=== PATIENT | female | born 1945 | race Caucasian/White ===

== ENCOUNTER 2018-12-29 13:44 | Emergency (ER) | payer MEDICARE, OTHER ==
--- NOTE | 2018-12-29 14:49 | ER Document Report ---
ED Medical Screen (RME) - General Chief Complaint: Leg Swelling Stated Complaint: LEG PAIN Time Seen by Provider: 12/29/18 14:34 Mode of Arrival: Ambulatory Information source: Patient Notes: 73-year-old female presented to ED for complaint of pain swelling and rash to bilateral lower extremities for 2 to 3 weeks. She states she went to her primary care doctor who sent her to a automobile body repairer helper. Dermatology started on triamcinolone cream for the rash and swelling. She does have peripheral vascular disease which is causing the swelling. She has a history of a stroke atrial fib with ablation cardiac stents x3 cataract surgery bronchitis pneumonia arthritis with degenerative joint disease and bilateral knee replacements back surgery due to injury to her back. Patient is alert and oriented respirations regular and unlabored speaking in full sentences. Both of her legs do have 2+ pitting edema up to the knees. She states it is very painful and itch. I have greeted and performed a rapid initial assessment of this patient. A comprehensive ED assessment and evaluation of the patient, analysis of test results and completion of medical decision making process will be conducted by an additional ED providers. TRAVEL OUTSIDE OF THE [place] IN LAST 30 DAYS: No - Related Data Allergies/Adverse Reactions: NSAIDS (Non-Steroidal Anti-Inflamma Allergy (Verified 12/29/18 13:45) prochlorperazine [From Compazine] Allergy (Verified 12/29/18 13:45) Physical Exam - Vital signs Vitals: Temp Pulse Resp BP Pulse Ox 97.7 F 64 15 180/61 H 95 12/29/18 14:11 12/29/18 14:11 12/29/18 14:11 12/29/18 14:11 12/29/18 14:11 Course - Vital Signs Vital signs: Temp Pulse Resp BP Pulse Ox 97.7 F 64 15 180/61 H 95 12/29/18 14:11 12/29/18 14:11 12/29/18 14:11 12/29/18 14:11 12/29/18 14:11
--- NOTE | 2018-12-29 15:17 | ER Document Report ---
ED General - General Chief Complaint: Leg Swelling Stated Complaint: LEG PAIN Time Seen by Provider: 12/29/18 14:34 Primary Care Provider: ALPHONSE CASON MD [Primary Care Provider] - Follow up in 3-5 days KEREN WALTON MD [[facility]] - Follow up in 1 week Mode of Arrival: Ambulatory TRAVEL OUTSIDE OF THE [place] IN LAST 30 DAYS: No - HPI Notes: 73-year-old female to the emergency department with complaints of progressively worsening bilateral lower leg swelling and skin changes for the past 2 weeks. She states that with the leg swelling and skin changes she has intense pain and itching. She states that she went and saw her primary care physician for this initially and he sent her over to see a elementary art teacher. She states that she has been told by the elementary art teacher that she has venous stasis dermatitis. He did start her on a cortisone cream. She states however that her pain is just gotten worse and the swelling is getting worse as well. She states that she does have a history of coronary artery disease and has had 3 stents placed. She states that in the past she has had some leg swelling in the left lower extremity but never in the right lower extremity. She states that she thinks that the right lower extremity is more swollen than her left extremity. She states that she does have a remote history of congestive heart failure but she cannot tell me when she last had an echo and she is not on any diuretics. She just recently moved to the area and she has not seen her new automotive specialty technician which will be Dr. Walton. She admits that in the past several weeks she is also been experiencing worsening shortness of breath. She finds that when she is moving around her home and she goes to sit down to rest that she feels like she is very labored. She states that last night when she ambulated to the bathroom and got back to her bedroom she felt like she was wheezing. She denies any fevers, cough, chills, chest pain, nausea, vomiting, diaphoresis. - Related Data Allergies/Adverse Reactions: NSAIDS (Non-Steroidal Anti-Inflamma Allergy (Verified 12/29/18 13:45) prochlorperazine [From Compazine] Allergy (Verified 12/29/18 13:45) Past Medical History - General Information source: Patient - Social History Smoking Status: Never Smoker Frequency of alcohol use: None Drug Abuse: None Lives with: Alone Family History: CAD, Hypertension Review of Systems - Review of Systems Constitutional: denies: Chills, Fever EENT: No symptoms reported Cardiovascular: Dyspnea, Edema. denies: Chest pain, Palpitations, Dizziness, Lightheaded Respiratory: Short of breath. denies: Cough Gastrointestinal: denies: Abdominal pain, Diarrhea, Nausea, Vomiting Genitourinary: See HPI Female Genitourinary: No symptoms reported Musculoskeletal: See HPI, Joint pain, Leg swelling Skin: See HPI, Change in color Hematologic/Lymphatic: No symptoms reported Neurological/Psychological: No symptoms reported -: Yes All other systems reviewed and negative Physical Exam - Vital signs Vitals: Temp Pulse Resp BP Pulse Ox 97.7 F 64 15 180/61 H 95 12/29/18 14:11 12/29/18 14:11 12/29/18 14:11 12/29/18 14:11 12/29/18 14:11 Interpretation: Hypertensive - General General appearance: Appears well, Alert In distress: None - HEENT Head: Normocephalic, Atraumatic Eyes: Normal Pupils: PERRL - Respiratory Respiratory status: No respiratory distress Chest status: Nontender Breath sounds: Normal Chest palpation: Normal - Cardiovascular Rhythm: Regular Heart sounds: Normal auscultation Murmur: No Notes: Bilateral 2+ pitting edema to the legs. - Back Back: Normal, Nontender - Extremities General lower extremity: Edema, Normal ROM, Normal strength. No: Normal temperature, Lola's sign - Neurological Neuro grossly intact: Yes Cognition: Normal Orientation: AAOx4 Charly Coma Scale Eye Opening: Spontaneous Charly Coma Scale Verbal: Oriented [place] Coma Scale Motor: Obeys Commands Chalry Coma Scale Total: 15 Speech: Normal Motor strength normal: LUE, RUE, LLE, RLE Sensory: Normal - Psychological Associated symptoms: Normal affect, Normal mood - Skin Skin Temperature: Warm Skin Moisture: Dry Skin Color: Kingston - Kingston skin from venous stasis dermatitis. No weeping of the leg s. See discussion of edema in cardiovascular Course - Re-evaluation Re-evalutation: 12/29/[address] Matute. We agree that we will trial patient on Lasix. We will have her follow with PCP. Noted labs as well as imaging. negative PVLs for DVT. Will discharge patient home. Discussed with patient and she agrees with the plan. Impression: Bilateral lower extremity edema, CHF, will discharge home with lasix 20 mg. Will have patient follow with Cardiology outpatient as well as PCP. Urged to return if worsening symptoms. - Vital Signs Vital signs: Temp Pulse Resp BP Pulse Ox 97.5 F 64 17 148/66 H 96 12/29/18 16:36 12/29/18 14:11 12/29/18 19:01 12/29/18 19:01 12/29/18 19:01 - Laboratory Result Diagrams: 12/29/18 16:14 12/29/18 16:14 Laboratory results interpreted by me: 12/29/18 12/29/18 12/29/18 16:14 16:14 16:37 RDW 14.4 H Lamb % (Auto) 15.1 H Glucose 152 H Alkaline Phosphatase 164 H Urine Glucose (UA) 150 H Urine Urobilinogen 2.0 H Discharge - Discharge Clinical Impression: Leg swelling Leg pain Qualifiers: Laterality: bilateral Qualified Code(s): M79.604 - Pain in right leg Congestive heart failure Qualifiers: Heart failure type: unspecified Heart failure chronicity: unspecified Qualified Code(s): I50.9 - Heart failure, unspecified Condition: Stable Disposition: HOME, SELF-CARE Instructions: Edema, Peripheral ([facility]) Additional Instructions: TAKE 20 mg LASIX PRESCRIBED DAILY. MONITOR YOUR WEIGHT DAILY. IF YOU NOTICE THAT YOUR WEIGHT INCREASES BY 2 OR MORE POUNDS, PLEASE TAKE 40 mg of [address]IX. CALL DR. WALTON TOMORROW TO SCHEDULE AN EARLIER APPOINTMENT NEXT WEEK. RETURN IMMEDIATELY IF YOUR SYMPTOMS WORSEN. Prescriptions: Furosemide [Lasix 20 mg Tablet] 20 mg PO QAM #10 tablet Referrals: ALPHONSE CASON MD [Primary Care Provider] - Follow up in 3-5 days KEREN WALTON MD [[facility]] - Follow up in 1 week
[2018-12-29 16:32] LABS: ABSOLUTE BASOPHILS # (AUTO) 0.1 10^3/uL (0.0-0.2); ABSOLUTE EOSINOPHILS # (AUTO) 0.2 10^3/uL (0.0-0.6); ABSOLUTE LYMPHOCYTES (AUTO) 2.2 10^3/uL (0.5-4.7); ABSOLUTE MONOCYTES (AUTO) 1.1 10^3/uL (0.1-1.4); ABSOLUTE NEUT (AUTO) 3.7 10^3/uL (1.7-8.2); BASOPHILS % (AUTO) 1.2 % (0-2); EOSINOPHILS % (AUTO) 2.9 % (0-6); HEMATOCRIT 37.6 % (36.0-47.0); HEMOGLOBIN 12.9 g/dL (12.0-15.5); LYMPHOCYTES % (AUTO) 29.9 % (13-45); MEAN CORPUSCULAR HEMOGLOBIN 30.9 pg (27.0-33.4); MEAN CORPUSCULAR HGB CONC 34.1 g/dL (32.0-36.0); MEAN CORPUSCULAR VOLUME 91 fl (80-97); MONOCYTES % (AUTO) 15.1 % (3-13); PLATELET COUNT 173 10^3/uL (150-450); RED BLOOD COUNT 4.16 10^6/uL (3.72-5.28); RED CELL DISTRIBUTION WIDTH 14.4 % (11.5-14.0); SEGMENTED NEUTROPHILS % (AUTO) 50.9 % (42-78); TOTAL CELLS COUNTED % (AUTO) 100 %; WHITE BLOOD COUNT 7.2 10^3/uL (4.0-10.5)
--- NOTE | 2018-12-29 16:34 | RADIOLOGY REPORT (SQ) ---
EXAM DESCRIPTION: CHEST SINGLE VIEW COMPLETED DATE/TIME: 12/29/2018 4:24 pm REASON FOR STUDY: SOB COMPARISON: None. NUMBER OF VIEWS: One view. TECHNIQUE: Single frontal radiographic view of the chest acquired. LIMITATIONS: None. FINDINGS: LUNGS AND PLEURA: Mild bilateral interstitial airspace disease. MEDIASTINUM AND HILAR STRUCTURES: No masses. Contour normal. HEART AND VASCULAR STRUCTURES: Heart is enlarged with central vascular prominence. BONES: No acute findings. HARDWARE: None in the chest. OTHER: No other significant finding. IMPRESSION: Cardiomegaly and mild vascular congestion. TECHNICAL DOCUMENTATION: JOB ID: [id number] [employer]- All Rights Reserved Reading location - IP/workstation name: [email or web address]
[2018-12-29 16:58] LABS: ALBUMIN 3.5 g/dL (3.5-5.0); ALKALINE PHOSPHATASE 164 U/L (38-126); ANION GAP 9 (5-19); ASPARTATE AMINO TRANSFERASE 34 U/L (14-36); BILIRUBIN,DIRECT 0.4 mg/dL (0.0-0.4); BILIRUBIN,TOTAL 1.2 mg/dL (0.2-1.3); BLOOD UREA NITROGEN 9 mg/dL (7-20); CALCIUM 9.6 mg/dL (8.4-10.2); CARBON DIOXIDE 28 mmol/L (22-30); CHLORIDE 102 mmol/L (98-107); GLUCOSE 152 mg/dL (75-110); POTASSIUM 4.1 mmol/L (3.6-5.0); TOTAL PROTEIN 6.3 g/dL (6.3-8.2)
[2018-12-29 17:06] LABS: APPEARANCE,URINE CLEAR; BILIRUBIN,URINE NEGATIVE (NEGATIVE); COLOR,URINE YELLOW; GLUCOSE, URINE 150 mg/dL (NEGATIVE); KETONES,URINE NEGATIVE (NEGATIVE); LEUKOCYTE ESTERASE,URINE NEGATIVE (NEGATIVE); NITRITE,URINE NEGATIVE (NEGATIVE); PROTEIN,URINE NEGATIVE (NEGATIVE); URINE SPECIFIC GRAVITY 1.011
[2018-12-29 17:19] LABS: NT PRO BNP 424 pg/mL (5-900)
[2018-12-29 17:20] LABS: TROPONIN I < 0.012 ng/mL
[2018-12-29] MEDS ORDERED: FUROSEMIDE INJ/PF 20 MG/2 ML SDV IV ONE (18:36)
[2018-12-29 19:22] VITALS: BP 148/66
--- NOTE | 2018-12-29 19:36 | RADIOLOGY REPORT (SQ) ---
EXAM DESCRIPTION: VENOUS UNILATERAL LOWER COMPLETED DATE/TIME: 12/29/2018 7:25 pm REASON FOR STUDY: bilateral lower leg edema COMPARISON: None. TECHNIQUE: Dynamic and static rodriguez scale and color images acquired of both lower extremity venous sy stems. Selected spectral images acquired with additional compression and augmentation maneuvers. Imag es stored on PACS. LIMITATIONS: None. FINDINGS: RIGHT LEG COMMON FEMORAL AND FEMORAL: Normal phasicity, compression and augmentation. No visualized echogenic m aterial on rodriguez scale. No defects on color images. POPLITEAL: Normal compression and augmentation. No visualized echogenic material on rodriguez scale. No de fects on color images. CALF VESSELS: Normal compression and augmentation. No visualized echogenic material on rodriguez scale. No defects on color image. Peroneal veins could not be seen. GSV AND SSV: Normal compression. No visualized echogenic material on rodriguez scale. No defects on color images. ANY DEEP VENOUS INSUFFICIENCY: Not evaluated. ANY EVIDENCE OF POPLITEAL CYST: No. OTHER: No other significant finding. LEFT LEG COMMON FEMORAL AND FEMORAL: Normal phasicity, compression and augmentation. No visualized echogenic m aterial on rodriguez scale. No defects on color images. POPLITEAL: Normal compression and augmentation. No visualized echogenic material on rodriguez scale. No de fects on color images. CALF VESSELS: Normal compression and augmentation. No visualized echogenic material on rodriguez scale. No defects on color images. Peroneal veins could not be seen. GSV AND SSV: Normal compression. No visualized echogenic material on rodriguez scale. No defects on color images. ANY DEEP VENOUS INSUFFICIENCY: Not evaluated. ANY EVIDENCE POPLITEAL CYST: No. OTHER: No other significant finding. IMPRESSION: NO EVIDENCE DVT OR SVT IN EITHER LEG. (PERONEAL VEINS CANNOT BE SEEN IN EITHER CALF. ) TECHNICAL DOCUMENTATION: JOB ID: [id number] [employer]- All Rights Reserved Reading location - IP/workstation name: [email or web address]
--- NOTE | 2018-12-30 14:14 | EKG REPORT ---
SEVERITY:- ABNORMAL ECG - SINUS RHYTHM PROBABLE ANTEROSEPTAL INFARCT, AGE INDETERM LATERAL LEADS ARE ALSO INVOLVED NONSPECIFIC T CHANGES : Confirmed by: He Moffett 30-Dec-2018 14:13:35
== END 2018-12-29 19:35 | disposition home or self-care (01) ==
LOC: ER 13:44
DX: I50.9 Heart failure, unspecified (principal); I87.2 Venous insufficiency (chronic) (peripheral); M79.604 Pain in right leg; M25.50 Pain in unspecified joint; R60.0 Localized edema; R06.02 Shortness of breath; Z88.8 Allergy status to other drugs, medicaments and biological substances; I25.10 Atherosclerotic heart disease of native coronary artery without angina pectoris
CPT/HCPCS: 93005; 36415; 85025; 80053; 81001; 84484; 83880; 93971; 71045; 93010; J1940; 96374; 99284

== ENCOUNTER 2019-01-18 06:25 | Day surgery (SDC) | payer MEDICARE, OTHER ==
[~2019-01-18 06:25] MED LIST: RADIAL COCKTAIL SYRINGE 10 ML IV PRN
[2019-01-18] MEDS ORDERED: HEPARIN SODIUM,PORCINE/NS/PF 2,000 UNIT/1,000 ML RTUINJ IV ONE (07:04)
[2019-01-18] MEDS ORDERED: LIDOCAINE 1% INJ-PF (10 MG/ML) 30 ML SDV ONE (07:04)
[2019-01-18] MEDS ORDERED: MIDAZOLAM 2 MG/2 ML INJ ONE (07:34)
[2019-01-18] MEDS ORDERED: HEPARIN SOD (PORCINE) 5,000 UNIT/ML 1 ML VIAL ONE (07:34)
[2019-01-18] MEDS ORDERED: FENTANYL CITRATE INJ/PF 100 MCG/2 ML AMPUL ONE ×2 (07:34→09:10)
[2019-01-18] MEDS ORDERED: NORMAL SALINE 1000 ML 1,000 ML IV PRN (07:39)
[2019-01-18] MEDS ORDERED: DIAZEPAM 5 MG TABLET PO PRN (07:39)
[2019-01-18] MEDS ORDERED: DIPHENHYDRAMINE HCL 25 MG CAPSULE PO PRN (07:40)
[2019-01-18] MEDS ORDERED: DIAZEPAM 5 MG TABLET ONE (07:41)
[2019-01-18] MEDS ORDERED: DIPHENHYDRAMINE HCL 25 MG CAPSULE ONE (07:42)
[2019-01-18] MEDS ORDERED: BIVALIRUDIN INJ 250 MG VIAL IV ONE (09:12)
[2019-01-18] MEDS ORDERED: TICAGRELOR 90 MG TABLET ONE (09:59)
--- NOTE | 2019-01-18 10:30 | Operative Report ---
Operative Report DATE OF SURGERY: 01/18/19 Operative Report: Left heart catheterization coronary angiography, left ventriculography, Cutting Balloon PTCA to the PDA of the RCA and stent implantation in the radius intermedius with a drug-eluting stent POSTOPERATIVE DIAGNOSIS: Hypertrophic cardiomyopathy spayed variant, multivessel coronary disease OPERATION: Left heart catheterization coronary angiography stent implantation and PTCA SURGEON: CHARLY BOSS ANESTHESIA: Moderate Sedation COMPLICATIONS: None PROCEDURE: After informed consent was obtained the patient was brought to the cardiac catheterization lab and the right wrist was prepared in usual sterile and draped manner. Hemodynamic access was gained using micropuncture technique and the patient was anticoagulated with heparin. An intra-arterial cocktail of verapamil and lidocaine was administered. Selective coronary angiography was performed with a [place] catheter. This was exchanged with pigtail catheter and left ventriculography was performed in standard [place] projection. The patient left the Cardiac Catheterization Lab in stable condition, with intact distal pulses and no chest pain or other complications from the procedure. Conscious sedation was initiated, monitored, and maintained during the procedure with the start time of 849 and a completion time of 10 AM for a total procedure time of 71 minutes. A total of 1.5 milligrams of Versed and 175 mcg of fentanyl were used for conscious sedation. HEMODYNAMIC DATA: [Aortic pressure was not recorded to beginning the case initial left ventricular pressure was 121/15 post ventriculography LV pressure is 112/20 aortic pressure on pullback is 116/46 there is no gradient across the aortic valve] CORONARY ANATOMY: [] ANGIOGRAPHY: [] VENTRICULOGRAPHY: Ventriculography is performed in the [place] projection and demonstrates [the left ventricle has a speed configuration consistent with hypertrophic cardiomyopathy there is an apical cavity and near apical obliteration regional wall motion is hyperdynamic and no regional wall motion abnormalities are noted ejection fraction by area length method is calculated at 92%] . CORONARY ANGIOGRAPHY: [] LEFT MAIN: [Left main is normal] LEFT ANTERIOR DESCENDING: The LAD is relatively small caliber vessel there is a 40 to 50% stenosis in the midportion which is eccentric there is a small diagonal which is also patent with luminal irregularities CIRCUMFLEX CORONARY: The circumflex gives rise to 2 posterolateral branches and a ramus intermedius branch the ramus intermedius branch has an 80% proximal near ostial stenosis the ongoing circumflex has irregularities only RIGHT CORONARY ARTERY: The right coronary artery is a dominant vessel supplying the PDA there is is a 20 to 30% stenosis in the mid RCA near the right ventricular marginal branches stent implantations are noted in the distal right coronary artery which extends into the PDA in the proximal midportion and the extent of the stents makes surgical revascularization of the PDA difficult bypass would need to be done very distal there is an in-stent area of restenosis approaching 9095% Percutaneous revascularization to the right coronary artery was then performed patient received Angiomax a JR4 catheter was advanced into the ostium and intuition guidewire was advanced across the distal stenosis attempts at PTCA wi th a 2.5 mm angioscope cutting balloon was unsuccessful the balloon would not cross a 2.0 mm Medtronic balloon was then used to dilate the stenosis this crossed with significant difficulty after dilatation the 2-5 cutting balloon was used and postdilated to 2.8 resulting in an excellent angiographic result TIO-3 flow and no evidence of dissection or side branch loss Attention was then turned towards the ramus intermedius and the be an XB 3 5 was then advanced into the left main the lesion was crossed attempts at crossing with a 208 mm drug-eluting stent was unsuccessful this was then dilated with a 2.0 balloon in the 2.08 mm Medtronic josy drug-eluting stent was postdilated to 2.25 resulting in an excellent angiographic result IMPRESSION: 1. Hypertrophic cardiomyopathy with a spade ventricle 2. Successful drug-eluting stent implantation in the ramus intermedius 3. Cutting Balloon PTCA to the right PDA 4. Moderate disease in the LAD which is small caliber Recommendations: Dual antiplatelet therapy for a year Medical therapy for the hypertrophic cardiomyopathy Myocardial perfusion study in order to determine the significance of the stenosis in the LAD See Dr. Darrion Walton thank you
[2019-01-18 14:44] VITALS: BP 140/64
== END 2019-01-18 13:45 | disposition home or self-care (01) ==
LOC: CCL 06:25
PROVIDERS: ATTEND Internal Medicine Cardiovascular Disease
DX: I25.10 Atherosclerotic heart disease of native coronary artery without angina pectoris (principal); Z79.84 Long term (current) use of oral hypoglycemic drugs; Z79.899 Other long term (current) drug therapy; R94.31 Abnormal electrocardiogram [ECG] [EKG]; E78.5 Hyperlipidemia, unspecified; I11.9 Hypertensive heart disease without heart failure
CPT/HCPCS: 82962; 93458; 92928; 92920; C1877; C1887; C1725; C1874; J2250; J1644 ×2; A9270 ×3; J3010; J3490 ×4; J0583

== ENCOUNTER 2019-03-03 08:23 | Emergency (ER) | payer MEDICARE, OTHER ==
[2019-03-03] MEDS ORDERED: NITROGLYCERIN 0.4 MG/TAB 25 TAB/BOTTLE SL PRN (10:01)
[2019-03-03] MEDS ORDERED: ASPIRIN 325 MG TABLET PO ONE (10:01)
[2019-03-03 10:22] LABS: ABSOLUTE LYMPHOCYTES (AUTO) 1.4 10^3/uL (0.5-4.7); ABSOLUTE MONOCYTES (AUTO) 0.8 10^3/uL (0.1-1.4); ABSOLUTE NEUT (AUTO) 11.7 10^3/uL (1.7-8.2); HEMATOCRIT 39.9 % (36.0-47.0); HEMOGLOBIN 13.7 g/dL (12.0-15.5); LYMPHOCYTES % (AUTO) 9.8 % (13-45); MEAN CORPUSCULAR HEMOGLOBIN 31.3 pg (27.0-33.4); MEAN CORPUSCULAR HGB CONC 34.4 g/dL (32.0-36.0); MEAN CORPUSCULAR VOLUME 91 fl (80-97); PLATELET COUNT 204 10^3/uL (150-450); RED BLOOD COUNT 4.39 10^6/uL (3.72-5.28); RED CELL DISTRIBUTION WIDTH 14.2 % (11.5-14.0); SEGMENTED NEUTROPHILS % (AUTO) 84.2 % (42-78); TOTAL CELLS COUNTED % (AUTO) 100 %; WHITE BLOOD COUNT 13.9 10^3/uL (4.0-10.5)
--- NOTE | 2019-03-03 11:00 | RADIOLOGY REPORT (SQ) ---
EXAM DESCRIPTION: CHEST SINGLE VIEW COMPLETED DATE/TIME: 03/03/2019 10:33 am REASON FOR STUDY: chest pain COMPARISON: 12/29/2018 NUMBER OF VIEWS: One view. TECHNIQUE: Single frontal radiographic view of the chest acquired. LIMITATIONS: None. FINDINGS: LUNGS AND PLEURA: No opacities, masses or pneumothorax. No pleural effusion. MEDIASTINUM AND HILAR STRUCTURES: No masses. Contour normal. HEART AND VASCULAR STRUCTURES: Heart enlarged without failure. Normal vasculature. BONES: No acute findings. HARDWARE: None in the chest. OTHER: No other significant finding. IMPRESSION: HEART ENLARGED WITHOUT FAILURE. NO OTHER SIGNIFICANT RADIOGRAPHIC FINDING IN THE CHEST. TECHNICAL DOCUMENTATION: JOB ID: [id number] [employer]- All Rights Reserved Reading location - IP/workstation name: [email or web address]
[2019-03-03 11:58] LABS: ALBUMIN 3.8 g/dL (3.5-5.0); ALKALINE PHOSPHATASE 190 U/L (38-126); ANION GAP 13 (5-19); ASPARTATE AMINO TRANSFERASE 45 U/L (14-36); BILIRUBIN,DIRECT 0.3 mg/dL (0.0-0.4); BILIRUBIN,TOTAL 1.2 mg/dL (0.2-1.3); BLOOD UREA NITROGEN 16 mg/dL (7-20); CALCIUM 9.6 mg/dL (8.4-10.2); CARBON DIOXIDE 20 mmol/L (22-30); CHLORIDE 104 mmol/L (98-107); GLUCOSE 267 mg/dL (75-110); POTASSIUM 4.4 mmol/L (3.6-5.0)
[2019-03-03 12:10] LABS: APPEARANCE,URINE CLEAR; BILIRUBIN,URINE NEGATIVE (NEGATIVE); COLOR,URINE YELLOW; GLUCOSE, URINE >=500 mg/dL (NEGATIVE); KETONES,URINE NEGATIVE (NEGATIVE); LEUKOCYTE ESTERASE,URINE NEGATIVE (NEGATIVE); NITRITE,URINE NEGATIVE (NEGATIVE); PROTEIN,URINE NEGATIVE (NEGATIVE); URINE SPECIFIC GRAVITY 1.026; UROBILINOGEN,URINE NEGATIVE mg/dL (<2.0)
--- NOTE | 2019-03-03 12:48 | ER Document Report ---
ED General - General Chief Complaint: Chest Pain Stated Complaint: CHEST PAIN Time Seen by Provider: 03/03/19 09:29 Primary Care Provider: ALPHONSE CASON MD [Primary Care Provider] - Follow up as needed TRAVEL OUTSIDE OF THE [place] IN LAST 30 DAYS: No - HPI Notes: Is a 74-year-old pleasant lady who presents today with a complaint of substernal chest pain that started this morning around 3 AM. Patient describes chest tightness, radiating down her left arm. Associated symptoms included dyspnea. Patient states that she took a nitroglycerin and she is now pain-free. She has history of coronary artery disease and is status post stent placement on January 18. She is now pain-free. She denies any cough or congestion. She denies any recent illness. Describes her symptoms as moderate. She states her symptoms feel like her heart pain. - Related Data Allergies/Adverse Reactions: NSAIDS (Non-Steroidal Anti-Inflamma Allergy (Intermediate, Verified 03/03/19 08:48) MOUTH SORES acetaminophen [From [place]] Adverse Reaction (Severe, Verified 03/03/19 08:48) AMS hydrocodone [From [place]] Adverse Reaction (Severe, Verified 03/03/19 08:48) AMS perflutren [From [place]] Adverse Reaction (Intermediate, Verified 03/03/19 08: 48) MUSCLE WEAKNESS prochlorperazine [From Compazine] Adverse Reaction (Intermediate, Verified 11/12 08:48) MUSCLE SPASMS NECK Past Medical History - Social History Smoking Status: Never Smoker Chew tobacco use (# tins/day): No Frequency of alcohol use: None Drug Abuse: None Family History: CAD, Hypertension Patient has suicidal ideation: No Patient has homicidal ideation: No - Past Medical History Cardiac Medical History: Reports: Hx Atrial Fibrillation, Hx Coronary Artery Disease, Hx Hypertension Denies: Hx Heart Attack Pulmonary Medical History: Reports: Hx Bronchitis, Hx COPD, Hx Pneumonia Denies: Hx Asthma Neurological Medical History: Reports: Hx Cerebrovascular Accident - 1998 LEFT SIDE. Denies: Hx Seizures Endocrine Medical History: Reports: Hx Diabetes Mellitus Type 2 Musculoskeletal Medical History: Reports Hx Arthritis - back Past Surgical History: Reports: Hx Cardiac Surgery - 4 stents, Hx Cholecystectomy, Hx Hysterectomy, Hx Orthopedic Surgery - bilateral knee replacements, spinal surgery post fall - Immunizations Hx Diphtheria, Pertussis, Tetanus Vaccination: No Hx Pneumococcal Vaccination: 04/27/17 Review of Systems - Review of Systems Cardiovascular: Chest pain, Dyspnea - xd Respiratory: Short of breath. denies: Cough -: Yes All other systems reviewed and negative Physical Exam - Vital signs Vitals: Temp Pulse Resp BP Pulse Ox 98.1 F 89 16 173/76 H 100 03/03/19 08:48 03/03/19 08:48 03/03/19 08:48 03/03/19 08:48 03/03/19 08:48 - General General appearance: Appears well, Alert - Respiratory Respiratory status: No respiratory distress Chest status: Nontender Breath sounds: Normal Chest palpation: Normal - Cardiovascular Rhythm: Regular Heart sounds: Normal auscultation Murmur: No - Abdominal Inspection: Normal Distension: No distension Bowel sounds: Normal Tenderness: Nontender Organomegaly: No organomegaly - Extremities General upper extremity: Normal inspection, Nontender, Normal color, Normal ROM, Normal temperature General lower extremity: Normal inspection, Nontender, Normal color, Normal ROM, Normal temperature, Normal weight bearing. No: Lola's sign - Neurological Neuro grossly intact: Yes Cognition: Normal Orientation: AAOx4 Charly Coma Scale Eye Opening: Spontaneous [place] Coma Scale Verbal: Oriented Charly Coma Scale Motor: Obeys Commands Charly Coma Scale Total: 15 Speech: Normal Motor strength normal: LUE, RUE, LLE, RLE Sensory: Normal - Psychological Associated symptoms: Normal affect, Normal mood Course - Re-evaluation Re-evalutation: 03/03/19 13:51 Differential diagnosis includes acute coronary syndrome with atypical chest pain. Given this patient's cardiac risk factors, I will need to rule out ACS. EKG shows normal sinus rhythm at 91 bpm. Normal axis. Normal intervals. More pronounced lateral T wave inversion in previous EKG. Otherwise, no acute injury pattern. 1232 Reevaluated patient remains pain-free. Labs reviewed. Patient's care discussed with Dr. Carrero, cardiology. He recommends transfer to [facility] for cardiolo gy management since we will not have anybody on until Thursday. 1351 Patient's care discussed with Dr. Clarke, cardiology at his calendar. She accepts transfer. She recommends Lovenox 1 mg/kg subcu now. 03/03/19 15:51 Patient remains pain-free. - Vital Signs Vital signs: Temp Pulse Resp BP Pulse Ox 98.1 F 89 20 117/83 97 03/03/19 08:48 03/03/19 08:48 03/03/19 15:01 03/03/19 15:01 03/03/19 15:01 - Laboratory Result Diagrams: 03/03/19 09:00 03/03/19 11:24 Laboratory results interpreted by me: 03/03/19 03/03/19 03/03/19 09:00 11:24 11:52 WBC 13.9 H RDW 14.2 H Lymph % (Auto) 9.8 L Absolute Neuts (auto) 11.7 H Seg Neutrophils % 84.2 H Sodium 136.8 L Carbon Dioxide 20 L Glucose 267 H AST 45 H Alkaline Phosphatase 190 H Urine Glucose (UA) >=500 H Critical Care Note - Critical Care Note Total time excluding time spent on procedures (mins): 75 Comments: Critical care time for management of non-Q wave TX. Discharge - Discharge Clinical Impression: Non-STEMI (non-ST elevated myocardial infarction) Condition: Fair Disposition: [facility] Referrals: ALPHONSE CASON MD [Primary Care Provider] - Follow up as needed
[2019-03-03] MEDS ORDERED: ENOXAPARIN SODIUM INJ 100 MG/1 ML DISP.SYRIN SUBCUT ONE (13:47)
[2019-03-03] MEDS ORDERED: NITROGLYCERIN 2% OINTMENT 1 GM PACKET TP ONE (15:45)
--- NOTE | 2019-03-03 20:07 | ER Document Report ---
Doctor's Note Notes: 03/03/19 20:06 Transport team is here for this patient now. She is awake and alert has no complaints and her vital signs are stable. She appears to be stable for transport at this time.
[2019-03-03 20:21] VITALS: BP 135/63
--- NOTE | 2019-03-03 22:37 | EKG REPORT ---
SEVERITY:- ABNORMAL ECG - SINUS RHYTHM PROBABLE LVH WITH SECONDARY REPOL ABNRM BORDERLINE PROLONGED QT INTERVAL : Confirmed by: He Moffett 03-Mar-2019 22:36:56
== END 2019-03-03 20:36 | disposition short-term general hospital (02) ==
LOC: ER 08:23
DX: I21.4 Non-ST elevation (NSTEMI) myocardial infarction (principal); I25.10 Atherosclerotic heart disease of native coronary artery without angina pectoris; I10 Essential (primary) hypertension; J44.9 Chronic obstructive pulmonary disease, unspecified; E11.9 Type 2 diabetes mellitus without complications; Z95.5 Presence of coronary angioplasty implant and graft; Z88.8 Allergy status to other drugs, medicaments and biological substances
CPT/HCPCS: 93005; 99291; 99292; 96372; 36415; 85025; 80053; 81001; 84484; 71045; 93010; A9270 ×2; J1650

== ENCOUNTER 2019-07-25 10:48 | Emergency (ER) | payer MEDICARE, OTHER ==
--- NOTE | 2019-07-25 11:34 | RADIOLOGY REPORT (SQ) ---
EXAM DESCRIPTION: CHEST SINGLE VIEW IMAGES COMPLETED DATE/TIME: 07/25/2019 11:16 am REASON FOR STUDY: short of breath COMPARISON: 03/03/2019 EXAM PARAMETERS: NUMBER OF VIEWS: One view. TECHNIQUE: Single frontal radiographic view of the chest acquired. RADIATION DOSE: NA LIMITATIONS: None. FINDINGS: LUNGS AND PLEURA: Chronic interstitial changes in the lung bases. No consolidation. No l arge effusions. MEDIASTINUM AND HILAR STRUCTURES: No masses. Contour normal. HEART AND VASCULAR STRUCTURES: Heart normal in size. Normal vasculature. BONES: No acute findings. HARDWARE: None in the chest. OTHER: No other significant finding. IMPRESSION: NO ACUTE RADIOGRAPHIC FINDING IN THE CHEST. TECHNICAL DOCUMENTATION: JOB ID: [id number] [employer]- All Rights Reserved Reading location - IP/workstation name: [email or web address]
--- NOTE | 2019-07-25 11:43 | ER Document Report ---
ED Respiratory Problem - General Chief Complaint: Shortness Of Breath Stated Complaint: SHORTNESS OF BREATH Time Seen by Provider: 07/25/19 11:25 Primary Care Provider: ALPHONSE CASON MD [Primary Care Provider] - Follow up as needed Notes: 74-year-old female history of CHF, CAD and cellulitis lower extremities presents with difficulty breathing that started last night. The patient stated she was elevating her legs due to increased swelling over the last several days she is currently on active treatment for cellulitis of her lower extremities states it is getting better. States that both legs. She noticed some difficulty breathing last night she was elevating her legs but her head was only on one pillow which is not the norm for her. Stated she felt short of breath last night. Was able to sit up and do a little bit better she called her data processing control clerk this morning who advised her to come here to the ER. Currently patient states she still has some difficulty breathing but it is much better than last night. She denies fever chills. Has had a nonproductive cough no recent travel or high risk activity. She states last night her difficulty breathing severity was severe but is much improved this morning. The patient denies any fever chills. She states occasionally she will have an occasional wheeze but that is the norm for her. TRAVEL OUTSIDE OF THE [place] IN LAST 30 DAYS: No - Related Data Allergies/Adverse Reactions: NSAIDS (Non-Steroidal Anti-Inflamma Allergy (Intermediate, Verified 03/03/19 08:48) MOUTH SORES acetaminophen [From [place]] Adverse Reaction (Severe, Verified 03/03/19 08:48) AMS hydrocodone [From [place]] Adverse Reaction (Severe, Verified 03/03/19 08:48) AMS perflutren [From Definity] Adverse Reaction (Intermediate, Verified 03/03/19 08:48) MUSCLE WEAKNESS prochlorperazine [From Compazine] Adverse Reaction (Intermediate, Verified 03/03/19 08:48) MUSCLE SPASMS NECK Past Medical History - Social History Smoking Status: Unknown if Ever Smoked Family History: CAD, Hypertension Patient has suicidal ideation: No Patient has homicidal ideation: No - Past Medical History Cardiac Medical History: Reports: Hx Atrial Fibrillation, Hx Coronary Artery Disease, Hx Hypertension Denies: Hx Heart Attack Pulmonary Medical History: Reports: Hx Bronchitis, Hx COPD, Hx Pneumonia Denies: Hx Asthma Neurological Medical History: Reports: Hx Cerebrovascular Accident - 1998 LEFT SIDE. Denies: Hx Seizures Endocrine Medical History: Reports: Hx Diabetes Mellitus Type 2 Musculoskeletal Medical History: Reports Hx Arthritis - back Past Surgical History: Reports: Hx Cardiac Surgery - 4 stents, Hx Cho lecystectomy, Hx Hysterectomy, Hx Orthopedic Surgery - bilateral knee replacements, spinal surgery post fall - Immunizations Hx Diphtheria, Pertussis, Tetanus Vaccination: No Hx Pneumococcal Vaccination: 04/27/17 Review of Systems - Review of Systems Constitutional: denies: Chills, Fever EENT: No symptoms reported Cardiovascular: Orthopnea, Dyspnea, Edema. denies: Chest pain, Palpitations, Heart racing, Syncope, Dizziness Respiratory: Cough, Short of breath, Wheezing. denies: Hurts to breathe Gastrointestinal: Nausea. denies: Abdominal pain, Diarrhea, Vomiting Genitourinary: denies: Burning, Dysuria, Hematuria Musculoskeletal: Leg swelling, Ankle swelling Skin: Change in color. denies: Rash Neurological/Psychological: denies: Anxiety, Headaches -: Yes All other systems reviewed and negative Physical Exam - Vital signs Vitals: Pulse Ox 96 07/25/19 10:50 - Notes Notes: GENERAL_APPEARANCE: well_nourished, alert, cooperative VITALS: reviewed, see vital signs table. HEAD: no_swelling\tenderness on the head. EYES: PERRL, EOMI, conjunctiva_clear. NOSE: no_nasal_discharge. MOUTH: (-)decreased moisture. THROAT: no_tonsilar_inflammation, no_airway_obstruction. no_lymphadenopathy NECK: supple, no_neck_tenderness, (-)thyromegaly. Slight JVD noted BACK: no_back_tenderness. CHEST_WALL: no_chest_tenderness. LUNGS: Very slight_wheezing, fine crackles in bases, no_rhonchi, (-)accessory muscle use, good air exchange bilateral. HEART: normal_rate, normal_rhythm, normal_S1, normal_S2, (-)S3, (-)S4, no _murmur, no_rub. ABDOMEN: normal_BS, soft, no_abd_tenderness, (-)guarding, (-)rebound, no_organomegaly, no_abd_masses. EXTREMITIES: good pulses in all_extremities, really resolve redness bilateral lower extremities around the ankles. 3+ edema noted no induration no fluctuance. SKIN: warm, dry, good_color, no_rash. MENTAL_STATUS: speech_clear, oriented_X_3, normal_affect, responds_appropriate ly to questions. Course - Re-evaluation Re-evalutation: 07/25/19 11:43 74-year-old female arrives with appears to be a mild CHF exacerbation she is in no distress at this time. She is satting 95% on room air. She has some very fine crackles. I like she is trying to elevate her legs last night and got orthopneic. We will do a full work-up on her. She has no fever or sore throat. No recent travel low risk for coronavirus. 07/25/19 13:00 Patient is able to get up and ambulate back and forth to the bathroom. On my reexamination she was 90% on room air she has very mild fluid retention she did admit to not taking her Lasix yesterday. I will restart her Lasix for the next several days. She is to get a hold of her doctor and get back on a appropriate regiment. The patient declined a dose of Lasix here because she wants to get home before she urinates excessively. There is no signs of any pneumonia. She has no oxygen requirements no resting tachycardia. - Vital Signs Vital signs: Temp Pulse Resp BP Pulse Ox 97.8 F 23 H 134/58 H 95 07/25/19 11:00 07/25/19 12:01 07/25/19 12:01 07/25/19 12:01 - Laboratory Result Diagrams: 07/25/19 11:24 07/25/19 11:24 Laboratory results interpreted by me: 07/25/19 07/25/19 07/25/19 11:24 11:24 11:24 Hct 35.8 L RDW 16.2 H Sullivan % (Auto) 13.4 H Glucose 219 H Total Bilirubin 1.5 H AST 51 H Alkaline Phosphatase 159 H NT-Pro-B Natriuret Pep 639 H Albumin 3.3 L - Diagnostic Test Radiology reviewed: Reports reviewed Radiology results interpreted by me: 07/25/19 13:00 Chest X-Ray 07/25/19 10:50 IMPRESSION: NO ACUTE RADIOGRAPHIC FINDING IN THE CHEST. - EKG Interpretation by Me EKG shows normal: Sinus rhythm Rate: Normal Rhythm: NSR Discharge - Discharge Clinical Impression: Acute exacerbation of CHF (congestive heart failure) Qualifiers: Heart failure type: systolic Qualified Code(s): I50.23 - Acute on chronic systolic (congestive) heart failure Condition: Good Disposition: HOME, SELF-CARE Instructions: Congestive Heart Failure ([facility]) Additional Instructions: Please follow-up with your doctor in a week. I will prescribe you Lasix for the next 5 days twice a day. Prescriptions: Furosemide [Lasix] 20 mg PO BID #10 tab Referrals: ALPHONSE CASON MD [Primary Care Provider] - Follow up as needed
[2019-07-25 11:53] LABS: ABSOLUTE EOSINOPHILS # (AUTO) 0.3 10^3/uL (0.0-0.6); ABSOLUTE LYMPHOCYTES (AUTO) 1.6 10^3/uL (0.5-4.7); ABSOLUTE MONOCYTES (AUTO) 0.7 10^3/uL (0.1-1.4); ABSOLUTE NEUT (AUTO) 2.8 10^3/uL (1.7-8.2); BASOPHILS % (AUTO) 0.7 % (0-2); EOSINOPHILS % (AUTO) 5.2 % (0-6); HEMATOCRIT 35.8 % (36.0-47.0); HEMOGLOBIN 12.2 g/dL (12.0-15.5); LYMPHOCYTES % (AUTO) 28.7 % (13-45); MEAN CORPUSCULAR HEMOGLOBIN 29.8 pg (27.0-33.4); MEAN CORPUSCULAR VOLUME 88 fl (80-97); MONOCYTES % (AUTO) 13.4 % (3-13); PLATELET COUNT 165 10^3/uL (150-450); RED BLOOD COUNT 4.07 10^6/uL (3.72-5.28); RED CELL DISTRIBUTION WIDTH 16.2 % (11.5-14.0); TOTAL CELLS COUNTED % (AUTO) 100 %; WHITE BLOOD COUNT 5.5 10^3/uL (4.0-10.5)
[2019-07-25 12:10] LABS: ALBUMIN 3.3 g/dL (3.5-5.0); ALKALINE PHOSPHATASE 159 U/L (38-126); ANION GAP 9 (5-19); ASPARTATE AMINO TRANSFERASE 51 U/L (14-36); BILIRUBIN,DIRECT 0.1 mg/dL (0.0-0.4); BILIRUBIN,TOTAL 1.5 mg/dL (0.2-1.3); BLOOD UREA NITROGEN 9 mg/dL (7-20); CARBON DIOXIDE 25 mmol/L (22-30); CHLORIDE 103 mmol/L (98-107); GLUCOSE 219 mg/dL (75-110); POTASSIUM 4.1 mmol/L (3.6-5.0)
[2019-07-25 12:22] LABS: NT PRO BNP 639 pg/mL (<125)
[2019-07-25 12:29] LABS: TROPONIN I < 0.012 ng/mL
--- NOTE | 2019-07-25 13:23 | EKG REPORT ---
SEVERITY:- ABNORMAL ECG - SINUS RHYTHM ABNORMAL T, CONSIDER ISCHEMIA, ANT-LAT LEADS [facility] : Confirmed by: He Moffett 25-Jul-2019 13:22:25
[2019-07-25 13:48] VITALS: BP 134/57
== END 2019-07-25 13:36 | disposition home or self-care (01) ==
LOC: ER 10:48
DX: I50.23 Acute on chronic systolic (congestive) heart failure (principal); R06.02 Shortness of breath; I25.10 Atherosclerotic heart disease of native coronary artery without angina pectoris; I48.91 Unspecified atrial fibrillation; E11.9 Type 2 diabetes mellitus without complications; L03.116 Cellulitis of left lower limb; L03.115 Cellulitis of right lower limb; Z88.6 Allergy status to analgesic agent; Z86.73 Personal history of transient ischemic attack (TIA), and cerebral infarction without residual deficits; Z96.653 Presence of artificial knee joint, bilateral; Z90.49 Acquired absence of other specified parts of digestive tract
CPT/HCPCS: 36415; 71045; 80053; 83880; 84484; 85025; 93005; 93010; 99285

== ENCOUNTER 2019-12-05 10:07 | Emergency (ER) | payer MEDICARE, OTHER ==
--- NOTE | 2019-12-05 10:51 | ER Document Report ---
ED Medical Screen (RME) - General Chief Complaint: Leg Pain Stated Complaint: KNEE PAIN Time Seen by Provider: 12/05/19 10:46 Primary Care Provider: ALPHONSE CASON MD [Primary Care Provider] - Follow up as needed Mode of Arrival: Wheelchair Information source: Patient Notes: 74-year-old female presents to ED for Increased pain in the left knee starting on Thursday. She states she had a knee replacement 17 years ago and Thursday morning when she got up the knee was very painful and so was the back of the leg the back of the knee. She states that the pain is continued since Thursday and now she cannot walk on the leg due to the pain. I have greeted and performed a rapid initial assessment of this patient. A comprehensive ED assessment and evaluation of the patient, analysis of test results and completion of medical decision making process will be conducted by an additional ED providers. TRAVEL OUTSIDE OF THE [place] IN LAST 30 DAYS: No - Related Data Allergies/Adverse Reactions: NSAIDS (Non-Steroidal Anti-Inflamma Allergy (Intermediate, Verified 03/03/19 08:48) MOUTH SORES acetaminophen [From [place]] Adverse Reaction (Severe, Verified 03/03/19 08:48) AMS hydrocodone [From [place]] Adverse Reaction (Severe, Verified 03/03/19 08:48) AMS perflutren [From Def[place]] Adverse Reaction (Intermediate, Verified 03/03/19 08:48) MUSCLE WEAKNESS prochlorperazine [From Compazine] Adverse Reaction (Intermediate, Verified 03/03/19 08:48) MUSCLE SPASMS NECK Past Medical History - Social History Frequency of alcohol use: None Drug Abuse: None - Past Medical History Cardiac Medical History: Reports: Hx Atrial Fibrillation, Hx Coronary Artery Disease, Hx Hypertension Denies: Hx Heart Attack Pulmonary Medical History: Reports: Hx Bronchitis, Hx COPD, Hx Pneumonia Denies: Hx Asthma Neurological Medical History: Reports: Hx Cerebrovascular Accident - 1998 LEFT SIDE. Denies: Hx Seizures Endocrine Medical History: Reports: Hx Diabetes Mellitus Type 2 Musculoskeltal Medical History: Reports Hx Arthritis - back Past Surgical History: Reports: Hx Cardiac Surgery - 4 stents, Hx Cholecystectomy, Hx Hysterectomy, Hx Orthopedic Surgery - bilateral knee replacements, spinal surgery post fall - Immunizations Hx Diphtheria, Pertussis, Tetanus Vaccination: No Physical Exam - Vital signs Vitals: Temp Pulse Resp BP Pulse Ox 98.7 F 70 16 179/66 H 98 12/05/19 10:14 12/05/19 10:14 12/05/19 10:14 12/05/19 10:14 12/05/19 10:14 Course - Vital Signs Vital signs: Temp Pulse Resp BP Pulse Ox 98.7 F 70 16 179/66 H 98 12/05/19 10:14 12/05/19 10:14 12/05/19 10:14 12/05/19 10:14 12/05/19 10:14 Doctor's Discharge - Discharge Referrals: ALPHONSE CASON MD [Primary Care Provider] - Follow up as needed
[2019-12-05 11:29] LABS: ABSOLUTE EOSINOPHILS # (AUTO) 0.1 10^3/uL (0.0-0.6); ABSOLUTE LYMPHOCYTES (AUTO) 1.6 10^3/uL (0.5-4.7); ABSOLUTE MONOCYTES (AUTO) 1.4 10^3/uL (0.1-1.4); ABSOLUTE NEUT (AUTO) 4.4 10^3/uL (1.7-8.2); BASOPHILS % (AUTO) 0.5 % (0-2); EOSINOPHILS % (AUTO) 0.9 % (0-6); HEMATOCRIT 37.3 % (36.0-47.0); HEMOGLOBIN 12.7 g/dL (12.0-15.5); LYMPHOCYTES % (AUTO) 21.6 % (13-45); MEAN CORPUSCULAR HEMOGLOBIN 29.9 pg (27.0-33.4); MEAN CORPUSCULAR VOLUME 88 fl (80-97); MONOCYTES % (AUTO) 18.1 % (3-13); PLATELET COUNT 147 10^3/uL (150-450); RED BLOOD COUNT 4.23 10^6/uL (3.72-5.28); RED CELL DISTRIBUTION WIDTH 15.5 % (11.5-14.0); SEGMENTED NEUTROPHILS % (AUTO) 58.9 % (42-78); TOTAL CELLS COUNTED % (AUTO) 100 %; WHITE BLOOD COUNT 7.5 10^3/uL (4.0-10.5)
[2019-12-05 11:34] LABS: INTERNATIONAL RATION (INR) 1.18; PROTHROMBIN TIME 15.2 SEC (11.4-15.4)
[2019-12-05 11:35] LABS: PARTIAL THROMBOPLASTIN TIME 39.9 SEC (23.5-35.8)
[2019-12-05 11:49] LABS: ALBUMIN 3.1 g/dL (3.5-5.0); ALKALINE PHOSPHATASE 117 U/L (38-126); ANION GAP 5 (5-19); ASPARTATE AMINO TRANSFERASE 44 U/L (14-36); BILIRUBIN,DIRECT 0.2 mg/dL (0.0-0.4); BILIRUBIN,TOTAL 2.2 mg/dL (0.2-1.3); BLOOD UREA NITROGEN 9 mg/dL (7-20); CALCIUM 8.5 mg/dL (8.4-10.2); CARBON DIOXIDE 24 mmol/L (22-30); CHLORIDE 102 mmol/L (98-107); GLUCOSE 124 mg/dL (75-110); TOTAL PROTEIN 6.6 g/dL (6.3-8.2)
--- NOTE | 2019-12-05 12:42 | RADIOLOGY REPORT (SQ) ---
EXAM DESCRIPTION: KNEE LEFT 4 VIEW IMAGES COMPLETED DATE/TIME: 12/05/2019 12:33 pm REASON FOR STUDY: Pain swelling COMPARISON: None. NUMBER OF VIEWS: Four views. TECHNIQUE: AP, lateral, and both oblique radiographic images acquired of the left knee. LIMITATIONS: None. FINDINGS: MINERALIZATION: Normal. BONES: Total knee arthroplasty in good position. JOINT: There appears be a minimal joint effusion. SOFT TISSUES: No soft tissue swelling. No radio-opaque foreign body. OTHER: No other significant finding. IMPRESSION: Knee arthroplasty in good position. Minimal joint effusion. TECHNICAL DOCUMENTATION: JOB ID: [id number] 2010 [employer]- All Rights Reserved Reading location - IP/workstation name: [email or web address]
--- NOTE | 2019-12-05 13:59 | RADIOLOGY REPORT (SQ) ---
EXAM DESCRIPTION: VENOUS UNILATERAL LOWER IMAGES COMPLETED DATE/TIME: 12/05/2019 1:48 pm REASON FOR STUDY: Left leg pain swelling COMPARISON: 12/29/2018 TECHNIQUE: Dynamic and static rodriguez scale and color images acquired of the left leg venous system. Se lected spectral images acquired with additional compression and augmentation maneuvers. The contralat eral common femoral vein and saphenofemoral junction were also imaged. Images stored on PACS. LIMITATIONS: None. FINDINGS: COMMON FEMORAL: Normal phasicity, compression and augmentation. No visualized echogenic ma terial on rodriguez scale. No defects on color images. FEMORAL: Normal compression and augmentation. No visualized echogenic material on rodriguez scale. No defe cts on color images. POPLITEAL: Normal compression, augmentation. No visualized echogenic material on rodriguez scale. No defec ts on color images. CALF VESSELS: Normal compression, augmentation. No visualized echogenic material on rodriguez scale. No de fects on color images. GSV and SSV: Normal compression, augmentation. No visualized echogenic material on rodriguez scale. No def ects on color images. ANY DEEP VENOUS INSUFFICIENCY: Not evaluated. ANY EVIDENCE OF POPLITEAL CYST: No. OTHER: No other significant finding. CONTRALATERAL COMMON FEMORAL VEIN AND SAPHENOFEMORAL JUNCTION: Normal phasicity, compression and augmentation. No visualized echogenic material on rodriguez scale. No de fects on color images. IMPRESSION: NO EVIDENCE OF DVT OR SVT IN THE LEFT LEG. TECHNICAL DOCUMENTATION: JOB ID: [id number] 2010 [employer]- All Rights Reserved Reading location - IP/workstation name: [email or web address]
[2019-12-05] MEDS ORDERED: DEXAMETHASONE SOD PHOS INJ 10 MG/1 ML VIAL IV ONE (15:47)
--- NOTE | 2019-12-05 16:21 | ER Document Report ---
ED General - General Chief Complaint: Leg Pain Stated Complaint: KNEE PAIN Time Seen by Provider: 12/05/19 10:46 Primary Care Provider: ALPHONSE CASON MD [Primary Care Provider] - Follow up as needed Mode of Arrival: Wheelchair TRAVEL OUTSIDE OF THE [place] IN LAST 30 DAYS: No - HPI Notes: Chief complaint: Left lower extremity pain HPI: 74-year-old female presents to ED for Increased pain in the left knee starting on Thursday. She states she had bilateral knee replacement about 17 years ago. Thursday morning when she got up the knee was very painful and so was the back of the leg the back of the knee. She states that the pain is continued since Thursday and now she cannot walk on the leg due to the pain. Patient is allergic to multiple medications and says the only pain medicine she can really take is tramadol. She currently has tramadol at home and get some relief when she takes this but she is concerned as to the cause of her pain. States she is also intolerant for NSAIDs. She denies any history of DVT. She denies any history of gout. - Related Data Allergies/Adverse Reactions: NSAIDS (Non-Steroidal Anti-Inflamma Allergy (Intermediate, Verified 03/03/19 08:48) MOUTH SORES acetaminophen [From [place]] Adverse Reaction (Severe, Verified 03/03/19 08:48) AMS hydrocodone [From [place]] Adverse Reaction (Severe, Verified 03/03/19 08:48) AMS perflutren [From [place]] Adverse Reaction (Intermediate, Verified 03/03/19 08:48) MUSCLE WEAKNESS prochlorperazine [From Compazine] Adverse Reaction (Intermediate, Verified 03/03/19 08:48) MUSCLE SPASMS NECK Past Medical History - General Information source: Patient - Social History Smoking Status: Never Smoker Frequency of alcohol use: None Drug Abuse: None Family History: CAD, Hypertension - Past Medical History Cardiac Medical History: Reports: Hx Atrial Fibrillation, Hx Coronary Artery Disease, Hx Hypertension Denies: Hx Heart Attack Pulmonary Medical History: Reports: Hx Bronchitis, Hx COPD, Hx Pneumonia Denies: Hx Asthma Neurological Medical History: Reports: Hx Cerebrovascular Accident - 1998 LEFT SIDE. Denies: Hx Seizures Endocrine Medical History: Reports: Hx Diabetes Mellitus Type 2 Musculoskeletal Medical History: Reports Hx Arthritis - back Past Surgical History: Reports: Hx Cardiac Surgery - 4 stents, Hx Cholecystect issac, Hx Hysterectomy, Hx Orthopedic Surgery - bilateral knee replacements, spinal surgery post fall - Immunizations Hx Diphtheria, Pertussis, Tetanus Vaccination: No Hx Pneumococcal Vaccination: 04/27/17 Review of Systems - Review of Systems Notes: Constitutional: Negative for fever. HENT: Negative for sore throat. Eyes: Negative for visual changes. Cardiovascular: Negative for chest pain. Respiratory: Negative for shortness of breath. Gastrointestinal: Negative for abdominal pain, vomiting or diarrhea. Genitourinary: Negative for dysuria. Musculoskeletal: As per HPI. Additionally reports problems with chronic back pain due to degenerative disc disease. Skin: Negative for rash. Neurological: Patient has peripheral neuropathy and has tingling of both lower e xtremities chronically which is been attributed to severe disc disease.. 10 point ROS negative except as marked above and in HPI. Physical Exam - Vital signs Vitals: Temp Pulse Resp BP Pulse Ox 98.7 F 70 16 179/66 H 98 12/05/19 10:14 12/05/19 10:14 12/05/19 10:14 12/05/19 10:14 12/05/19 10:14 - Notes Notes: GENERAL obese female of approximately stated age appearing in no acute distress. SKIN: Good turgor no rashes. HEAD: Normocephalic atraumatic. EYES: PERRLA. EOMI. Conjunctivae and sclerae clear. EARS: CANALS AND TMS CLEAR. NOSE: CLEAR. MOUTH: Moist mucosa. Good dentition. No stridor or edema. No drooling. NECK: Supple. No masses or thyromegaly. No adenopathy. Carotids 2+ without bruits. No JVD. BACK: Symmetrical without tenderness. CHEST: Respirations unlabored. Breath sounds clear and symmetrical. HEART: Regular rhythm. No murmur gallop or rub. ABDOMEN: Obese. Soft nontender without masses, organomegaly or rebound. Bowel sounds normally active. No bruits. GENITALIA: Deferred. EXTREMITIES: Moderate degenerative changes of inner phalangeal joints of both hands. Patient has old anterior surgical scars of both knees. Patient has mild warmth to palpation of the left knee joint. Range of motion is mildly diminished bilaterally. There is no palpable effusion. No edema. No calf tenderness. Cap refill less than 1.5 seconds. Dorsalis pedis and posterior tibial pulses 3+ and symmetrical. NEUROLOGICAL: GCS 15. Alert and oriented x3. Fluent speech. Cranial nerves II through XII intact. Sensorimotor and cerebellar normal. Normal tone. PSYCHIATRIC: Appropriate affect. Course - Re-evaluation Re-evalutation: 12/05/19 16:24 She has no fever no elevation of white count. Her plain films of the knee are remarkable for stable hardware with no other acute findings per radiologist. She also had a DVT study by ultrasound which showed no evidence of a clot. I think this is probably gout or pseudogout. We discussed options for treatment. She clearly has past history of intolerance for NSAIDs. She is a type II diabetic but she is very well controlled with average blood sugars in the 118 range. I suggested we give her injection of Decadron and put her on some colchicine and have her follow-up with her primary care physician. She has a walker at home and has family members who will supervise her for the next several days. I would suggest ice packs additionally. She can follow-up with her primary care doctor and she also has an orthopedist in [place] she can follow-up with. 12/05/19 16:28 Findings, clinical impression and plan of treatment have been discussed with patient/family. Understanding of current findings and recommendations has been acknowledged by them and there is agreement regarding disposition and follow-up. - Vital Signs Vital signs: Temp Pulse Resp BP Pulse Ox 98.7 F 70 16 179/66 H 98 12/05/19 10:14 12/05/19 10:14 12/05/19 10:14 12/05/19 10:14 12/05/19 10:14 - Laboratory Result Diagrams: 12/05/19 11:05 12/05/19 11:05 Laboratory results interpreted by me: 12/05/19 12/05/19 12/05/19 11:05 11:05 11:05 RDW 15.5 H Plt Count 147 L Payne % (Auto) 18.1 H APTT 39.9 H Sodium 131.3 L Glucose 124 H Total Bilirubin 2.2 H AST 44 H Albumin 3.1 L Discharge - Discharge Clinical Impression: Probable gout, Lumbar disc disease Left knee pain Qualifiers: Chronicity: acute Qualified Code(s): M25.562 - Pain in left knee Condition: Stable Disposition: HOME, SELF-CARE Instructions: Ice & Elevation ([facility]), Knee Immobilizing Splint ([facility]) Additional Instructions: Use brace and walker as discussed. Ice and elevation. Take prescribed medications. Monitor your blood sugar as instructed. You may take tramadol supplementally as needed for pain. Follow-up with your doctor or your orthopedist in the next 3 to 4 days. Prescriptions: Colchicine [Colcrys 0.6 mg Tablet] 1 tab PO BID #60 tab Referrals: ALPHONSE CASON MD [Primary Care Provider] - Follow up as needed
[2019-12-05] MEDS ORDERED: DEXAMETHASONE SOD PHOSPHATE INJ 4 MG/1 ML VIAL IM ONE (16:30)
[2019-12-05] MEDS ORDERED: DEXAMETHASONE SOD PHOSPHATE INJ 4 MG/1 ML VIAL IV ONE (16:30)
[2019-12-05 17:03] VITALS: BP 161/61
== END 2019-12-05 17:26 | disposition home or self-care (01) ==
LOC: ER 10:07
DX: M51.36 Other intervertebral disc degeneration, lumbar region (principal); M10.9 Gout, unspecified; M25.562 Pain in left knee; I48.91 Unspecified atrial fibrillation; I25.10 Atherosclerotic heart disease of native coronary artery without angina pectoris; I10 Essential (primary) hypertension; E11.9 Type 2 diabetes mellitus without complications; I69.954 Hemiplegia and hemiparesis following unspecified cerebrovascular disease affecting left non-dominant side; Z96.653 Presence of artificial knee joint, bilateral; Z88.0 Allergy status to penicillin; Z88.6 Allergy status to analgesic agent
CPT/HCPCS: 99285; 96372; 36415; 85025; 85610; 85730; 80053; 93971; 73564; J1100

== ENCOUNTER 2019-12-09 10:31 | Emergency (ER) | payer MEDICARE ==
[2019-12-09] MEDS ORDERED: HYDROMORPHONE HCL INJ/PF 2 MG/ML AMPULE IV ONE (12:57)
[2019-12-09] MEDS ORDERED: ONDANSETRON HCL INJ/PF 4 MG/2 ML SDV IV ONE (13:00)
[2019-12-09] MEDS ORDERED: NORMAL SALINE 1000 ML 1,000 ML IV ONE (13:02)
[2019-12-09 13:28] LABS: ABSOLUTE EOSINOPHILS # (AUTO) 0.1 10^3/uL (0.0-0.6); ABSOLUTE LYMPHOCYTES (AUTO) 1.6 10^3/uL (0.5-4.7); ABSOLUTE NEUT (AUTO) 5.2 10^3/uL (1.7-8.2); BASOPHILS % (AUTO) 0.3 % (0-2); EOSINOPHILS % (AUTO) 1.1 % (0-6); HEMATOCRIT 38.2 % (36.0-47.0); HEMOGLOBIN 13.1 g/dL (12.0-15.5); LYMPHOCYTES % (AUTO) 20.4 % (13-45); MEAN CORPUSCULAR HEMOGLOBIN 29.9 pg (27.0-33.4); MEAN CORPUSCULAR HGB CONC 34.2 g/dL (32.0-36.0); MEAN CORPUSCULAR VOLUME 88 fl (80-97); MONOCYTES % (AUTO) 13.1 % (3-13); PLATELET COUNT 190 10^3/uL (150-450); RED BLOOD COUNT 4.37 10^6/uL (3.72-5.28); RED CELL DISTRIBUTION WIDTH 15.9 % (11.5-14.0); SEGMENTED NEUTROPHILS % (AUTO) 65.1 % (42-78); TOTAL CELLS COUNTED % (AUTO) 100 %
[2019-12-09] MEDS ORDERED: MORPHINE SULFATE 10 MG/ML INJ IV ONE (13:29)
[2019-12-09 13:38] LABS: ALBUMIN 3.3 g/dL (3.5-5.0); ALKALINE PHOSPHATASE 125 U/L (38-126); ANION GAP 5 (5-19); ASPARTATE AMINO TRANSFERASE 58 U/L (14-36); BILIRUBIN,DIRECT 0.2 mg/dL (0.0-0.4); BILIRUBIN,TOTAL 1.3 mg/dL (0.2-1.3); BLOOD UREA NITROGEN 17 mg/dL (7-20); CALCIUM 8.6 mg/dL (8.4-10.2); CARBON DIOXIDE 28 mmol/L (22-30); CHLORIDE 100 mmol/L (98-107); GLUCOSE 116 mg/dL (75-110); POTASSIUM 4.3 mmol/L (3.6-5.0); TOTAL PROTEIN 6.9 g/dL (6.3-8.2)
[2019-12-09 14:13] LABS: APPEARANCE,URINE SLIGHTLY-CLOUDY; BILIRUBIN,URINE NEGATIVE (NEGATIVE); CALCIUM OXALATE CRYSTALS,URINE FEW /HPF; COLOR,URINE YELLOW; GLUCOSE, URINE NEGATIVE (NEGATIVE); KETONES,URINE NEGATIVE (NEGATIVE); LEUKOCYTE ESTERASE,URINE MODERATE (NEGATIVE); NITRITE,URINE NEGATIVE (NEGATIVE); PROTEIN,URINE NEGATIVE (NEGATIVE); URINE SPECIFIC GRAVITY 1.018
[2019-12-09 14:34] LABS: URINE AMPHETAMINES SCREEN NEGATIVE; URINE BARBITURATES SCREEN NEGATIVE; URINE BENZODIAZEPINES SCREEN NEGATIVE; URINE COCAINE SCREEN NEGATIVE; URINE MARIJUANA (THC) SCREEN NEGATIVE; URINE METHADONE SCREEN NEGATIVE; URINE PHENCYCLIDINE SCREEN NEGATIVE
--- NOTE | 2019-12-09 14:36 | RADIOLOGY REPORT (SQ) ---
EXAM DESCRIPTION: CT HEAD WITHOUT IMAGES COMPLETED DATE/TIME: 12/09/2019 2:21 pm REASON FOR STUDY: headache COMPARISON: None. TECHNIQUE: Axial images acquired through the brain without intravenous contrast. Images reviewed wi th bone, brain and subdural windows. Additional sagittal and coronal reconstructions were generated. Images stored on PACS. All CT scanners at this facility use dose modulation, iterative reconstruction, and/or weight based d osing when appropriate to reduce radiation dose to as low as reasonably achievable (ALARA). [facility]: Dose Right [facility]: CareDose [facility]: Dose Right [facility]: Teradose 4D [facility]: [place] RADIATION DOSE: CT Rad equipment meets quality standard of care and radiation dose reduction techniq ues were employed. CTDIvol: 53.2 mGy. DLP: 937 mGy-cm. mGy. LIMITATIONS: None. FINDINGS: VENTRICLES: Normal size and configuration. CEREBRUM: No masses. No hemorrhage. No midline shift. Subtle, scattered areas of low density in th e white matter most likely due to chronic micro-vascular ischemic change. No evidence for acute infa rction. CEREBELLUM: No masses. No hemorrhage. No alteration of density. No evidence for acute infarction. EXTRAAXIAL SPACES: No fluid collections. No masses. ORBITS AND GLOBE: No intra- or extraconal masses. Normal contour of globe without masses. CALVARIUM: No fracture. PARANASAL SINUSES: No fluid or mucosal thickening. SOFT TISSUES: No mass or hematoma. OTHER: Incidental note is made of calcified plaque within the cavernous segments of the internal gibson tid arteries bilaterally. He was IMPRESSION: No acute intracranial abnormalities. Background of very mild microvascular ischemic felicity nges. EVIDENCE OF ACUTE STROKE: NO. TECHNICAL DOCUMENTATION: JOB ID: [id number] Quality ID # [id number]: Final reports with documentation of one or more dose reduction techniques (e.g., Au tomated exposure control, adjustment of the mA and/or kV according to patient size, use of iterative reconstruction technique) 2010 [employer]- All Rights Reserved Reading location - IP/workstation name: [email or web address]
--- NOTE | 2019-12-09 14:37 | RADIOLOGY REPORT (SQ) ---
EXAM DESCRIPTION: CT LUMBAR SPINE WITHOUT IMAGES COMPLETED DATE/TIME: 12/09/2019 2:24 pm REASON FOR STUDY: low back pain/prior fractures COMPARISON: None. TECHNIQUE: Axial images acquired through the lumbar spine without intravenous contrast. Images revi ewed with lung, soft tissue and bone windows. Reconstructed coronal and sagittal MPR images reviewed . All images stored on PACS. All CT scanners at this facility use dose modulation, iterative reconstruction, and/or weight based d osing when appropriate to reduce radiation dose to as low as reasonably achievable (ALARA). [facility]: Dose Right [facility]: CareDose [facility]: Dose Right [facility]: Teradose 4D [facility]: Inflection RADIATION DOSE: mGy. LIMITATIONS: None. FINDINGS: SEGMENTATION: Normal. No transitional anatomy. ALIGNMENT: Grade 1-2 anterolisthesis of L4 on L5. VERTEBRAL BODIES: No fractures. No dislocation. No acute findings. DISCS: Disc space narrowing at L4-L5. PEDICLES, TRANSVERSE PROCESSES: No fractures. No dislocation. No acute findings. FACETS, POSTERIOR ELEMENTS: No fractures. No dislocation. No spinal stenosis. HARDWARE: No hardware in place. There has been posterior decompression from L3 through L5. VISUALIZED RIBS: No fractures. SOFT TISSUES: No significant or acute finding in adjacent soft tissues. OTHER: The minimal right basilar atelectasis and/or pleural thickening. IMPRESSION: Postsurgical and degenerative changes in the lumbar spine. Grade 1-2 anterolisthesis of L4 on L5. No acute findings. TECHNICAL DOCUMENTATION: JOB ID: [id number] Quality ID # [id number]: Final reports with documentation of one or more dose reduction techniques (e.g., Au tomated exposure control, adjustment of the mA and/or kV according to patient size, use of iterative reconstruction technique) 2010 [employer]- All Rights Reserved Reading location - IP/workstation name: [email or web address]
--- NOTE | 2019-12-09 15:51 | ER Document Report ---
Entered by NILA NAM SCRIBE 12/09/19 1338 Acting as scribe for:BAILEY AMAYA MD ED General - General Chief Complaint: Back Pain Stated Complaint: HEADACHE,LEG,BACK PAIN Time Seen by Provider: 12/09/19 11:43 Primary Care Provider: ALPHONSE CASON MD [Primary Care Provider] - Follow up as needed Mode of Arrival: Ambulatory Information source: Patient Notes: This 74 year old female patient presents to the emergency department today with complaints of left leg pain. She was seen here four days ago with this pain and she was sent home on steroids and she states the pain seemed to get better but now has gotten worse. She also complains of lower back pain. TRAVEL OUTSIDE OF THE [place] IN LAST 30 DAYS: No - Related Data Allergies/Adverse Reactions: NSAIDS (Non-Steroidal Anti-Inflamma Allergy (Intermediate, Verified 12/09/19 11:37) MOUTH SORES acetaminophen [From [place]] Adverse Reaction (Severe, Verified 12/09/19 11:37) AMS hydrocodone [From [place]] Adverse Reaction (Severe, Verified 12/09/19 11:37) AMS perflutren [From [place]] Adverse Reaction (Intermediate, Verified 12/09/19 11:37) MUSCLE WEAKNESS prochlorperazine [From [place]] Adverse Reaction (Intermediate, Verified 12/09/19 11:37) MUSCLE SPASMS NECK Past Medical History - General Information source: Patient - Social History Smoking Status: Never Smoker Cigarette use (# per day): No Chew tobacco use (# tins/day): No Frequency of alcohol use: None Family History: CAD, Hypertension Patient has homicidal ideation: No - Past Medical History Cardiac Medical History: Reports: Hx Atrial Fibrillation, Hx Coronary Artery Disease, Hx Hypertension Pulmonary Medical History: Reports: Hx Bronchitis, Hx COPD, Hx Pneumonia Neurological Medical History: Reports: Hx Cerebrovascular Accident - 1998 LEFT SIDE Endocrine Medical History: Reports: Hx Diabetes Mellitus Type 2 Musculoskeletal Medical History: Reports Hx Arthritis - back Past Surgical History: Reports: Hx Cardiac Surgery - 4 stents, Hx Cholecystectomy, Hx Hysterectomy, Hx Orthopedic Surgery - bilateral knee replacements, spinal surgery post fall - Immunizations Hx Diphtheria, Pertussis, Tetanus Vaccination: No Hx Pneumococcal Vaccination: 04/27/17 Review of Systems - Review of Systems Constitutional: No symptoms reported EENT: No symptoms reported Cardiovascular: No symptoms reported Respiratory: No symptoms reported Gastrointestinal: No symptoms reported Genitourinary: No symptoms reported Female Genitourinary: No symptoms reported Musculoskeletal: See HPI, Back pain, Joint pain Skin: No symptoms reported Hematologic/Lymphatic: No symptoms reported Neurological/Psychological: See HPI, Headaches Physical Exam - Vital signs Vitals: Temp Pulse Resp BP Pulse Ox 98.6 F 71 20 189/76 H 95 12/09/19 10:37 12/09/19 10:37 12/09/19 10:37 12/09/19 10:37 12/09/19 10:37 - Notes Notes: Physical Exam: General: Alert, complains of a headache. HEENT: Normocephalic. Atraumatic. PERRL. Extraocular movements intact. O ropharynx clear. Neck: Supple. Non-tender. Respiratory: No respiratory distress. Clear and equal breath sounds bilaterally. Cardiovascular: Regular rate and rhythm. Abdominal: Morbidly obese. Non-tender. No distension. Normal Bowel Sounds. Back: Paraspinal tendernes in the area of L4-L5. No gross abnormalities. Extremities: Moves all four extremities. Upper extremities: Normal inspection. Normal ROM. Lower extremities: Normal inspection. No edema. Normal ROM. Neurological: Normal cognition. AAOx4. Normal speech. Psychological: Normal affect. Normal Mood. Skin: Warm. Dry. Normal color. Course - Re-evaluation Re-evalutation: 12/09/19 15:38 Patient resting comfortably in sleep awaken her and she reports that her pain medication has helped her back pain and her headache. I explained the patient at that time that her CT scan of her head did not show that there was any stroke or tumor or mass or bleed. Also I explained to her her CT scan of her lumbar spine disclose that she has changes from prior surgery degenerative disc disease but no acute fracture there was anterior listhesis and 1 of the lumbar junctions. - Vital Signs Vital signs: Temp Pulse Resp BP Pulse Ox 99.1 F 124 H 20 179/113 H 98 12/09/19 11:32 12/09/19 10:56 12/09/19 10:56 12/09/19 10:56 12/09/19 10:56 Vital signs to be repeated from the 11:00 report here on these vitals vital signs at this point shows systolic diastolic hypertension and tachycardia. - Laboratory Result Diagrams: 12/09/19 12:10 12/09/19 12:10 Laboratory results interpreted by me: 12/09/19 12/09/19 12/09/19 12:10 12:10 13:11 RDW 15.9 H Villalba % (Auto) 13.1 H Sodium 133.3 L Glucose 116 H AST 58 H Albumin 3.3 L Urine Blood MODERATE H Urine Urobilinogen 4.0 H Ur Leukocyte Esterase MODERATE H 12/09/19 15:42 Laboratories Somewhat unremarkable except for moderate blood in urine and moderate leukocyte esterase urine culture has been obtained and patient will be sent home on antibiotics. - Diagnostic Test Radiology reviewed: Image reviewed, Reports reviewed Radiology results interpreted by me: 12/09/19 15:[address] scan of head shows no acute process no fractures no tumors no masses no swelling no bleed. 12/09/19 15:[address] scan shows degenerative changes postsurgical changes and ante rior listhesis at L4 on 5. No acute fracture. Discharge - Discharge Clinical Impression: Lumbar degenerative disc disease, Low back pain, Headache, Urinary tract infection Condition: Stable Disposition: HOME, SELF-CARE Instructions: Nitrofurantoin ([facility]), Low Back Pain ([facility]), Urinary Tract Infection ([facility]), Pain Medication Injection ([facility]) Additional Instructions: Low Back Pain Three out of every four people will have an episode of disabling back pain during their lifetime. Most commonly the pain is due to straining of the muscles and ligaments in the low back. Usual treatment includes: (1) Rest on a firm surface. Avoid lying on your stomach. (2) Ice pack the painful area. After a few days, gentle heat may be used intermittently to relax the area, or ice packs can be continued. (3) Medication may be needed -- muscle relaxers and antiinflammatory medicines are commonly used. (4) As the back improves, exercises are prescribed to strengthen the back and abdominal muscles. Your doctor will advise you on the proper care for your back at each stage in your recovery. You may be better in a few days -- or healing may take several weeks. If new symptoms of a "herniated disc" (radiation of pain, numbness, or tingling down the back of the leg or weakness in the leg) occur, you should be re-examined. Further testing may be necessary. You are on medications for back pain as we speak there are no new prescriptions ordered at this time. We recommend you do follow-up with orthopedist. Prescriptions: Nitrofurantoin Monohyd/M-Cryst [Macrobid 100 mg Capsule] 100 mg PO BID #20 cap Referrals: ALPHONSE CASON MD [Primary Care Provider] - Follow up as needed JHONATHAN HERMOSILLO JR, DO [ACTIVE PROVISIONAL STAFF] - Follow up in 3-5 days I personally performed the services described in the documentation, reviewed and edited the documentation which was dictated to the scribe in my presence, and it accurately records my words and actions.
[2019-12-09 16:34] VITALS: BP 141/72
== END 2019-12-09 16:54 | disposition home or self-care (01) ==
LOC: ER 10:31
DX: M51.36 Other intervertebral disc degeneration, lumbar region (principal); N39.0 Urinary tract infection, site not specified; M54.5 Low back pain; R51 Headache; M54.9 Dorsalgia, unspecified; M79.605 Pain in left leg; Z88.8 Allergy status to other drugs, medicaments and biological substances; I25.10 Atherosclerotic heart disease of native coronary artery without angina pectoris; I10 Essential (primary) hypertension; J44.9 Chronic obstructive pulmonary disease, unspecified; E11.9 Type 2 diabetes mellitus without complications
CPT/HCPCS: 99285; 96361; 96374; 96375; 36415; 87086; 85025; 80053; 81001; 80307; 70450; 72131; J2270; J2405; J7030